=== PATIENT | female | born 1955 | race Caucasian/White ===

== ENCOUNTER 2020-06-07 16:26 | Inpatient (IN) | payer BC, MEDICARE ==
[~2020-06-07] VITALS: Ht 165.1 cm; Wt 79.9 kg
--- NOTE | 2020-06-07 16:48 | NUR ---
PATIENT ASSISTED TO BSC AND URINE SAMPLE OBTAINED AND SENT TO LAB.
--- NOTE | 2020-06-07 18:00 | NUR ---
PATIENT VOMITING IN CT, GIVEN 4MG ZOFRAN IVP.
[2020-06-07 19:30] VITALS: BP 118/72
[2020-06-07 21:44] LABS: BILIRUBIN NEGATIVE (NEGATIVE); KETONE NEGATIVE (NEGATIVE); NITRITE POSITIVE (NEGATIVE); UROBILINOGEN NORMAL mg/dL (< 2)
[2020-06-07 21:45] LABS: WHITE CELLS - URINE 25-50 HPF (0-4)
[2020-06-07 21:46] LABS: BACTERIA MANY HPF (NONE SEEN); SQUAMOUS EPITHELIAL 0-5 HPF (0-4)
[2020-06-07 22:00] VITALS: BP 11/61
--- NOTE | 2020-06-07 22:00 | NUR ---
PT IV ROCEPHIN FINISHED
--- NOTE | 2020-06-07 23:30 | NUR ---
PT IV ZITHROMAX FINISHED
[2020-06-07 23:54] LABS: SARS-CoV-2 ANTIGEN NEGATIVE- SARS-COV-2 (NEGATIVE)
[2020-06-08 01:00] VITALS: BP 100/56
--- NOTE | 2020-06-08 02:03 | NUR ---
PT WOUND CLEANED WITH BETADINE AND BETADINE SOAKED NON ADHERENT PLACED ON WOUND AND WRAPPED WITH KERLIX. PER ORDERS. PT TOLERATED WELL.
[2020-06-08 04:15] VITALS: BP 108/67
[2020-06-08 04:30] VITALS: BP 121/67
--- NOTE | 2020-06-08 04:30 | NUR ---
PT 89% ON 6L NC PT PLACED ON 15L NRB. 02 SATS IMPROVED TO 96%.
[2020-06-08 09:26] LABS: BASOPHILS 0.2 % (0-2); EOSINOPHILS 0 % (0-7); HEMATOCRIT 37.8 % (36.0-48.0); HEMOGLOBIN 12.7 g/dL (12-16); IMMATURE GRANULOCYTES 0.3 % (0-5); LYMPHOCYTE ABS# 1.01 10x3/uL (1.18-3.74); LYMPHOCYTES 11.8 % (15-50); MCH 31.1 pg (26.0-34.0); MCHC 33.6 g/dL (31.0-37.0); MCV 92.4 fL (80.0-100.0); MEAN PLATELET VOLUME 9.2 fL (7.4-10.4); MONOCYTES 8.6 % (2-11); NEUTROPHIL ABS# 6.78 10x3/uL (1.56-6.13); NEUTROPHILS 79.1 % (40-80); PLATELET COUNT 271 10x3/uL (130-400); RBC 4.09 10x6/uL (4.00-5.40); RDW 13.9 % (11.5-14.5); WBC 8.6 10x3/uL (4.8-10.8)
--- NOTE | 2020-06-08 09:27 | NUR ---
RECEIVED REPORT FROM THE ED. STATES THEY WILL GIVE THE MORNING MEDS AND POTASSIUM REPLACEMENT PER PROTOCOL THEN SEND HER.
[2020-06-08 09:54] VITALS: BMI 33.2
[2020-06-08 10:01] LABS: ALBUMIN 2.3 g/dL (3.4-5.0); ALKALINE PHOSPHATASE 90 U/L (30-120); ALT (SGPT) 34 U/L (10-68); BILIRUBIN - TOTAL 1.02 mg/dL (0.2-1.3); CALC OSMOLALITY 279 mosm/kg (275-300); CALCIUM 8.3 mg/dL (8.5-10.1); CARBON DIOXIDE 26.8 mmol/L (21.0-32.0); CHLORIDE - SERUM 99 mmol/L (98-107); CKMB 4.2 U/L (0.0-3.6); CREATINE KINASE 232 UL (21-215); CREATININE - SERUM 1.1 mg/dL (0.6-1.3); FERRITIN 668 ng/mL (3-244); GLUCOSE 128 mg/dL (74-106); LDH 436 U/L (81-234); MAGNESIUM - SERUM 2.5 mg/dL (1.8-2.4); PHOSPHOROUS 3.5 mg/dL (2.5-4.9); PROTEIN - SERUM 6.5 g/dL (6.4-8.2); SODIUM 136 mmol/L (136-145); UREA NITROGEN 30 mg/dL (7-18); eGFR NON AFRICAN AMERICAN 53 mL/min (90-120)
[2020-06-08 10:24] LABS: C-REACTIVE PROTEIN 18.5 mg/dL (0.0-0.9)
--- NOTE | 2020-06-08 10:36 | NUR ---
RECEIVED TO ROOM VIA WHEELCHAIR ON PORTABLE OXYGEN. SAT IS 63%. PLACED ON HIGH FLOW NASAL CANNULA WITH SAT TO 93% AT 10 L. IV SEEN TO LEFT AC PIV. WILL ADMIT.
[2020-06-08 10:42] LABS: POTASSIUM - SERUM 2.8 mmol/L (3.5-5.1); TROPONIN-I 0.694 ng/mL (0.000-0.060)
[2020-06-08 10:53] VITALS: BP 112/62
[2020-06-08 11:08] LABS: ERYTHROCYTE SEDIMENTATION RATE 82 mm/hr (0-30)
--- NOTE | 2020-06-08 11:10 | NUR ---
ZULEYMA SEEN TO LEFT ANKLE WITH NO DATE. PATIENT TO REPORT THAT IT WAS CHANGED THIS AM. WILL CHANGE AND DATE. PLACED ON HEART MONITOR, INSTRUC, IN IS AND PERFORMS WELL WITH 1000ML TIDAL VOLUME.
--- NOTE | 2020-06-08 11:49 | NUR ---
CALLED [facility] IN [place], SPOKE WITH SAL WHO IS GOING TO FAX THE LIST OF MEDICATIONS TO US.
--- NOTE | 2020-06-08 12:45 | NUR ---
CALLED TO ROOM. CLEANED UP FROM INCONT OF DIARREHA, BUTT PASTES APPLIED LIBERALLY. PAST CLEANING UP PATIENT AND DOING HER LEFT ANKLE SHE GOES AGAIN. CLEANED. LEFT ANKLE WOUND IS INNER ANKLE AREA, APPROX 5.5 CM X 1 CM IN A CATS EYES VIEW. VERY DARK/BLACK EDGES. WOUND BASE IS VERY RED AND IRRIATED LOOKING. NS APPIED TO 2 X 2, COVERED WITH DRY 4 X 4 AND WRAPPED WITH KERLIX. DATED. NO DRAINAGE SEEN. PATIENT STATES THAT THIS HAS BEEN THIS WAY FOR APPROX A YEAR WHEN SHE FELL IN THE BARN ON A C3DNAAR BOARD. TOLERATED WELL.
[2020-06-08] MEDS ORDERED: VOLTAREN75 MG PO (12:56)
[2020-06-08] MEDS ORDERED: NEURONTIN 300300 MG PO (12:56)
[2020-06-08] MEDS ORDERED: TRIAMTERENE-HC1 EAC3 PO (12:56)
[2020-06-08] MEDS ORDERED: CRESTOR5 MG PO (12:57)
[2020-06-08] MEDS ORDERED: SYNTHROID125 MCG PO (12:57)
[2020-06-08] MEDS ORDERED: EFFEXOR75 MG PO (12:58)
--- NOTE | 2020-06-08 12:58 | NUR ---
MEDICATION LIST FROM [facility] FAXED TO US. PATIENT HAS NO IDEA WHEN SHE TOOK HER MEDICATIONS LAST.
--- NOTE | 2020-06-08 13:12 | NUR ---
CLEANED AGAIN FOR INCONT. OF STOOL.
[2020-06-08 16:01] VITALS: BP 152/86
--- NOTE | 2020-06-08 17:41 | NUR ---
POTASSIUM RESULTS OF 3.4, WILL COVER PER PROTOCOL.
--- NOTE | 2020-06-08 17:53 | NUR ---
PATIENT TOOK 2 BITES AT LUNCH AND 6 BITES FOR SUPPER. PATIENT APPEARS MUCH MORE ALERT THIS EVENING. CALL LIGHT IN USE. SERUM POTASSIUM RE-OREDER PER PROTOCOL.
--- NOTE | 2020-06-08 18:31 | NUR ---
REMDESIVIR INFUSING WITHOUT PROBLEMS AT THIS TIME. PATIENT TO DO IS WITH TIDAL VOLUME OF 1000. DENIES ANY FURTHER NEEDS.
--- NOTE | 2020-06-08 19:30 | NUR ---
RECEIVED REPORT, WILL ASSUME CARE OF PT, DENIES ANY NEEDS AT THIS TIME, BED IS LOW, SRX2, CALL LIGHT IN REACH, WILL CONTINUE PLAN OF CARE
[2020-06-08 20:30] VITALS: BP 110/62
[2020-06-09 00:30] VITALS: BP 117/62
--- NOTE | 2020-06-09 02:02 | NUR ---
COMPLAINS OF IV HURTING, REMOVED CATHER INTACT, ARMAND BRODY RESITED 20G.TO JAZMÍN
--- NOTE | 2020-06-09 04:06 | NUR ---
I have reviewed this patient and I concur with the Shift Assessment completed by the Licensed Practical Nurse today this shift.
[2020-06-09 04:30] VITALS: BP 108/62
[2020-06-09 06:44] LABS: BASOPHILS 0.1 % (0-2); EOSINOPHILS 0.1 % (0-7); HEMATOCRIT 36.6 % (36.0-48.0); IMMATURE GRANULOCYTES 0.5 % (0-5); LYMPHOCYTE ABS# 1.61 10x3/uL (1.18-3.74); LYMPHOCYTES 19.1 % (15-50); MCH 30.9 pg (26.0-34.0); MCHC 32.8 g/dL (31.0-37.0); MCV 94.3 fL (80.0-100.0); MEAN PLATELET VOLUME 9.7 fL (7.4-10.4); MONOCYTES 8.3 % (2-11); NEUTROPHIL ABS# 6.05 10x3/uL (1.56-6.13); NEUTROPHILS 71.9 % (40-80); PLATELET COUNT 311 10x3/uL (130-400); RBC 3.88 10x6/uL (4.00-5.40); RDW 14.3 % (11.5-14.5); WBC 8.4 10x3/uL (4.8-10.8)
[2020-06-09 07:16] LABS: ALBUMIN 2.2 g/dL (3.4-5.0); ANION GAP 13.9 mmol/L (8-16); BILIRUBIN - DIRECT 0.2 mg/dL (0.00-0.30); BILIRUBIN - INDIRECT 0.44 mg/dL (0.00-1.00); BILIRUBIN - TOTAL 0.64 mg/dL (0.2-1.3); CALCIUM 8.4 mg/dL (8.5-10.1); CARBON DIOXIDE 26.2 mmol/L (21.0-32.0); CREATININE - SERUM 1.1 mg/dL (0.6-1.3); MAGNESIUM - SERUM 2.6 mg/dL (1.8-2.4); PHOSPHOROUS 3.4 mg/dL (2.5-4.9); POTASSIUM - SERUM 3.1 mmol/L (3.5-5.1)
[2020-06-09 08:00] VITALS: BP 108/59
--- NOTE | 2020-06-09 09:57 | NUR ---
CCP INFUSION STARTED. VITALS MONITORED.
[2020-06-09 11:38] VITALS: BP 112/46
[2020-06-09 16:00] VITALS: BP 124/61
--- NOTE | 2020-06-09 19:56 | NUR ---
RECEIVED REPORT, WILL ASSUME CARE OF PT, ASSIST PT TO RESTROOM AND BACK TO BED, BED IS LOW, SRX2, CALL LIGHT IN REACH, WILL CONTINUE PLAN OF CARE
[2020-06-09 20:29] VITALS: BP 114/55
[2020-06-09 22:12] LABS: BILIRUBIN NEGATIVE (NEGATIVE); KETONE NEGATIVE (NEGATIVE); NITRITE NEGATIVE (NEGATIVE); UROBILINOGEN NORMAL mg/dL (< 2)
[2020-06-10 01:10] VITALS: BP 111/63
--- NOTE | 2020-06-10 05:35 | NUR ---
I have reviewed this patient and I concur with the Shift Assessment completed by the Licensed Practical Nurse today this shift.
[2020-06-10 07:54] VITALS: BP 115/63
[2020-06-10 08:42] LABS: BASOPHILS 0.1 % (0-2); EOSINOPHILS 0.4 % (0-7); HEMATOCRIT 38.4 % (36.0-48.0); HEMOGLOBIN 12.6 g/dL (12-16); IMMATURE GRANULOCYTES 0.4 % (0-5); LYMPHOCYTE ABS# 1.51 10x3/uL (1.18-3.74); LYMPHOCYTES 18.7 % (15-50); MCH 31.2 pg (26.0-34.0); MCHC 32.8 g/dL (31.0-37.0); MEAN PLATELET VOLUME 9.4 fL (7.4-10.4); MONOCYTES 8.7 % (2-11); NEUTROPHILS 71.7 % (40-80); PLATELET COUNT 332 10x3/uL (130-400); RBC 4.04 10x6/uL (4.00-5.40); RDW 14.6 % (11.5-14.5); WBC 8.1 10x3/uL (4.8-10.8)
[2020-06-10 09:04] LABS: ALBUMIN 2.6 g/dL (3.4-5.0); ANION GAP 12.3 mmol/L (8-16); BILIRUBIN - DIRECT 0.22 mg/dL (0.00-0.30); BILIRUBIN - INDIRECT 0.64 mg/dL (0.00-1.00); BILIRUBIN - TOTAL 0.86 mg/dL (0.2-1.3); CALCIUM 8.6 mg/dL (8.5-10.1); MAGNESIUM - SERUM 2.5 mg/dL (1.8-2.4); PHOSPHOROUS 2.9 mg/dL (2.5-4.9); POTASSIUM - SERUM 3.3 mmol/L (3.5-5.1); PROTEIN - SERUM 6.5 g/dL (6.4-8.2)
[2020-06-10 11:11] VITALS: BP 109/64
--- NOTE | 2020-06-10 12:00 | NUR ---
IV RESTARTED TO LEFT AC BY ROBIN WEBBERN X 3 STICKS AND FLUSHED WITH NS.
--- NOTE | 2020-06-10 13:02 | NUR ---
1 UNIT COVID PLASMA STARTED. VS WNL. LINE IS PATENT. WILL MONITOR.
--- NOTE | 2020-06-10 13:03 | NUR ---
VERBAL CONSENT GIVEN FOR SURGEN PLCE GRAFT TO LEFT ANKLE.
[2020-06-10 15:49] VITALS: BP 113/62
[2020-06-10 20:18] VITALS: BP 114/60
[2020-06-11 00:40] VITALS: BP 119/58
--- NOTE | 2020-06-11 02:00 | NUR ---
I have reviewed this patient and I concur with the Shift Assessment completed by the Licensed Practical Nurse today this shift.
[2020-06-11 05:09] VITALS: BP 104/68
[2020-06-11 06:51] LABS: BASOPHILS 0 % (0-2); EOSINOPHILS 0.6 % (0-7); HEMATOCRIT 37.2 % (36.0-48.0); HEMOGLOBIN 12.1 g/dL (12-16); IMMATURE GRANULOCYTES 0.3 % (0-5); LYMPHOCYTE ABS# 1.26 10x3/uL (1.18-3.74); LYMPHOCYTES 18.9 % (15-50); MCHC 32.5 g/dL (31.0-37.0); MCV 95.4 fL (80.0-100.0); MEAN PLATELET VOLUME 9.8 fL (7.4-10.4); NEUTROPHIL ABS# 4.73 10x3/uL (1.56-6.13); NEUTROPHILS 71.2 % (40-80); PLATELET COUNT 309 10x3/uL (130-400); RDW 14.8 % (11.5-14.5); WBC 6.7 10x3/uL (4.8-10.8)
[2020-06-11 07:29] LABS: ALBUMIN 2.4 g/dL (3.4-5.0); ANION GAP 13.1 mmol/L (8-16); BILIRUBIN - DIRECT 0.25 mg/dL (0.00-0.30); BILIRUBIN - INDIRECT 0.48 mg/dL (0.00-1.00); BILIRUBIN - TOTAL 0.73 mg/dL (0.2-1.3); CALCIUM 7.9 mg/dL (8.5-10.1); CREATININE - SERUM 0.9 mg/dL (0.6-1.3); MAGNESIUM - SERUM 2.4 mg/dL (1.8-2.4); PHOSPHOROUS 3.3 mg/dL (2.5-4.9); POTASSIUM - SERUM 4.1 mmol/L (3.5-5.1); PROTEIN - SERUM 5.5 g/dL (6.4-8.2)
[2020-06-11 08:44] VITALS: BP 116/61
--- NOTE | 2020-06-11 11:21 | NUR ---
Nutrition Follow-up: Pt in droplet isolation; covid-19+. Poor PO intake reported over the weekend. Diarrhea. Noted plans for debridement of L leg chronic wound & placement of Restratta graft tomorrow. Diet: Regular Wt: 176# (06/09) Labs noted: Ca 7.9, Alb 2.4 Meds noted: Imodium, Florajen, Protonix, Decadron, zinc sulfate, vit B1, vit C, vit D, NS @ 50, electrolyte protocol -Encourage PO intake and honor food preferences. -+Ensure with meals. -Monitor wt. -RD will follow up within 2-3 days.
--- NOTE | 2020-06-11 12:30 | NUR ---
Rehab Note- Acute Inpatient REhab prescreen order received. The patient continues with an acute work up at this time with Surgeon noting skin graft planned for Wed, currently on 7L/High Flow O2. She has BC/BS insurance and will require a PreAuth prior to an acute inpatient rehab stay. She has a pending OT Eval. Will follow and begin PreAuth when acute work up completed. Thank you for this referral! Marita Calhoun RN Clinical Liaison, [facility] Rehab
[2020-06-11 13:02] VITALS: BP 132/57
[2020-06-11 16:08] VITALS: BP 124/67
--- NOTE | 2020-06-11 19:52 | NUR ---
SPOKE TO DR KAREN JACKSON AND IN AM
[2020-06-11 21:50] VITALS: BP 123/59
[2020-06-12 01:48] VITALS: BP 116/61
[2020-06-12 04:28] VITALS: BP 137/67
[2020-06-12 07:00] LABS: BASOPHILS 0 % (0-2); EOSINOPHILS 0.2 % (0-7); HEMOGLOBIN 12.1 g/dL (12-16); IMMATURE GRANULOCYTES 0.3 % (0-5); LYMPHOCYTES 17.5 % (15-50); MCH 30.9 pg (26.0-34.0); MCHC 32.7 g/dL (31.0-37.0); MCV 94.6 fL (80.0-100.0); MEAN PLATELET VOLUME 9.4 fL (7.4-10.4); MONOCYTES 9.4 % (2-11); NEUTROPHIL ABS# 4.57 10x3/uL (1.56-6.13); NEUTROPHILS 72.6 % (40-80); PLATELET COUNT 316 10x3/uL (130-400); RBC 3.91 10x6/uL (4.00-5.40); RDW 14.5 % (11.5-14.5); WBC 6.3 10x3/uL (4.8-10.8)
[2020-06-12 07:12] LABS: ALBUMIN 2.4 g/dL (3.4-5.0); ANION GAP 11.5 mmol/L (8-16); BILIRUBIN - DIRECT 0.2 mg/dL (0.00-0.30); BILIRUBIN - INDIRECT 0.42 mg/dL (0.00-1.00); BILIRUBIN - TOTAL 0.62 mg/dL (0.2-1.3); CARBON DIOXIDE 26.1 mmol/L (21.0-32.0); CREATININE - SERUM 0.9 mg/dL (0.6-1.3); MAGNESIUM - SERUM 2.2 mg/dL (1.8-2.4); PHOSPHOROUS 3.5 mg/dL (2.5-4.9); POTASSIUM - SERUM 3.6 mmol/L (3.5-5.1); PROTEIN - SERUM 5.9 g/dL (6.4-8.2)
--- NOTE | 2020-06-12 08:35 | NUR ---
MICHAEL [id number] LOT [id number] EXP 09/26/20
[2020-06-12 12:15] VITALS: BP 135/66
[2020-06-12 16:45] VITALS: Ht 165.1 cm; Wt 79.9 kg
--- NOTE | 2020-06-12 16:50 | NUR ---
OT NOTE: PT COMPLETED BUE AROM AX WITH FUNCTIONAL TASKS. PT COMPLETED ADL MOB WITH SBA-CGA. PT DID WELL. PT IS ANXIOUS TO GO HOME. [phone] PERRY GIBBS COTA
[2020-06-12 21:02] VITALS: BP 136/66
[2020-06-13 01:31] VITALS: BP 118/63
--- NOTE | 2020-06-13 05:33 | NUR ---
I have reviewed this patient and I concur with the Shift Assessment completed by the Licensed Practical Nurse today this shift.
[2020-06-13 05:45] VITALS: BP 123/58
[2020-06-13 05:56] LABS: BASOPHILS 0.2 % (0-2); EOSINOPHILS 0.2 % (0-7); HEMATOCRIT 41.2 % (36.0-48.0); HEMOGLOBIN 13.4 g/dL (12-16); IMMATURE GRANULOCYTES 0.5 % (0-5); LYMPHOCYTE ABS# 1.36 10x3/uL (1.18-3.74); LYMPHOCYTES 21.4 % (15-50); MCH 30.7 pg (26.0-34.0); MCHC 32.5 g/dL (31.0-37.0); MCV 94.5 fL (80.0-100.0); MEAN PLATELET VOLUME 9.6 fL (7.4-10.4); MONOCYTES 8.8 % (2-11); NEUTROPHILS 68.9 % (40-80); RBC 4.36 10x6/uL (4.00-5.40); RDW 14.6 % (11.5-14.5); WBC 6.4 10x3/uL (4.8-10.8)
[2020-06-13 06:05] LABS: PLATELET COUNT 390 10x3/uL (130-400)
[2020-06-13 06:14] LABS: ANION GAP 11.7 mmol/L (8-16); CALCIUM 8.4 mg/dL (8.5-10.1); CARBON DIOXIDE 25.6 mmol/L (21.0-32.0); CREATININE - SERUM 1.1 mg/dL (0.6-1.3); MAGNESIUM - SERUM 2.3 mg/dL (1.8-2.4); PHOSPHOROUS 3.4 mg/dL (2.5-4.9); POTASSIUM - SERUM 3.3 mmol/L (3.5-5.1)
--- NOTE | 2020-06-13 07:40 | NUR ---
UP IN CHAIR IN ROOM. DR BEARD IN TO SEE PT. GAVE HER WOUND INSTRUCTIONS IN REGARDS TO SKIN GRAFT ON LLE. WRAPPED W/ JADIEL WRAP & SECURED WITH TAPE. DENIES PAIN. IS READY TO BE DISCHARGED. SON WITH INSPECTOR MECHANICAL. WAS FOUND WHEN SHE WAS BROUGHT TO HOSPITAL, SO SHE HAS A TO PLAN. NO NEEDS VOICED AT PRESENT.
[2020-06-13 08:23] VITALS: BP 116/65
[2020-06-13] MEDS ORDERED: FEXOFENADINE HC60 MG PO (08:58)
[2020-06-13] MEDS ORDERED: ZINC-220220 MG PO (08:59)
[2020-06-13] MEDS ORDERED: DULERA 200 MCG8.8 GM INH (08:59)
[2020-06-13] MEDS ORDERED: MUCINEX DM ER1 EAC1 PO (08:59)
[2020-06-13] MEDS ORDERED: VITAMIN D325 MC1 PO (09:00)
[2020-06-13] MEDS ORDERED: SINGULAIR10 MG PO (09:00)
[2020-06-13] MEDS ORDERED: VITAMIN B-1100 M1 PO (09:00)
[2020-06-13] MEDS ORDERED: MELATONIN 3 MG1 TAB PO (09:00)
[2020-06-13] MEDS ORDERED: VITAMIN C PO (09:01)
[2020-06-13] MEDS ORDERED: DECADRON4 MG PO (09:01)
--- NOTE | 2020-06-13 16:01 | NUR ---
OT NOTE: PT COMPLETED ADL MOB WITH SPV. PT COMPLETED SIT TO STANDS WITH SBA. PT COMPLETED HYGIENE TASKS AT SINK LEVEL WHILE STANDING WITH SPV-SBA. PT EDUCATED ON SAFE AT HOME TO DECREASE RISK OF FALL. 3-052 THANK YOU,YENY MUNOZ
--- NOTE | 2020-06-13 16:28 | MORECARE ---
CASE MANAGEMENT DISCHARGE SUMMARY PATIENT: COLEEN OCHOA UNIT: [id number] ADM DATE: 06/07/20 AGE: 64 : 53 SEX: F ROOM/BED: D.2121 AUTHOR: CASI BHATT PHYSICIAN: REFERRING PHYSICIAN: NUPUR STUBBS MD DATE OF SERVICE: 06/13/20 Discharge Plan Patient Name: COLEEN OCHOA Facility: [facility]:[place] : 1955 Planned Disposition: Home Anticipated Discharge Date: Discharge Date: 06/13/2020 Expected LOS: Initial Reviewer: [email or web address] Initial Review Date: 06/07/2020 Generated: 06/13/20 5:27 pm DCPIA - Discharge Planning Initial Assessment Updated by [email or web address]: Kandice Taylor on 06/13/20 4:28 pm * Is the patient Alert and Oriented? Yes * How many steps to enter\exit or inside your home? * PCP PAULY * [facility] * Preadmission Environment Home Alone * ADLs Independent * Equipment Walker * Other Equipment BSC * List name and contact numbers for known caregivers / representatives who currently or will assist patient after discharge: RICARDO OCHOA - [facility] - [phone] * Verbal permission to speak to the caregivers and representatives has been obtained from the patient. Yes * Community resources currently utilized None * Additional services required to return to the preadmission environment? No * Can the patient safely return to the preadmission environment? Yes * Has this patient been hospitalized within the prior 30 days at any hospital? No Patient Name: COLEEN OCHOA Page [phone] at 1628 All edits/amendments must be made on the electronic document DICTATION DATE: 06/13/201626 EQUAL OPPORTUNITY DIRECTOR: JENNA 06/13/201626 RPT#: [id number] DC DATE:06/13/20 STATUS: DIS IN [facility] [address] [place] [address] END OF REPORT
--- NOTE | 2020-06-13 16:37 | MORECARE ---
CASE MANAGEMENT DISCHARGE SUMMARY PATIENT: COLEEN OCHOA UNIT: [id number] ADM DATE: 06/07/20 AGE: 64 : 53 SEX: F ROOM/BED: D.5812 AUTHOR: MILLERDOC PHYSICIAN: REFERRING PHYSICIAN: NUPUR STUBBS MD DATE OF SERVICE: 06/13/20 Discharge Plan Patient Name: COLEEN OCHOA Facility: [facility]:[place] : 1955 Planned Disposition: Home Anticipated Discharge Date: Discharge Date: 06/13/2020 Expected LOS: Initial Reviewer: [email or web address] Initial Review Date: 06/07/2020 Generated: 06/13/20 5:36 pm Comments DCP- Discharge Planning Updated by [email or web address]: Kandice Taylor on 06/13/20 3:[address] Patient Name: COLEEN OCHOA Admission Status: ER Accout number: [id number] Admission Date: 06-07-2020 : 1955 Admission Diagnosis:COVID-19 Attending: NUPUR STUBBS Current LOS: 6 Anticipated DC Date: Planned Disposition: Home Primary Insurance: [employer] OUT OF STATE Discharge Planning Comments: CM met with patient to complete initial dc planning assessment. CM educated patient on the CM role and verbal consent given by patient to complete assessment. Patient lives at home with prior to his recent demise. She will be home alone upon discharge. Patient is independent. At discharge patient plans to return home and feels this is a safe discharge. CM discussed availability of home health, rehab services, and medical equipment. Patient denies any need for HHS. Patient will have family to transport home. Patient denied known discharge needs at this time. CM will continue to follow and will assist as needed with dc plans/needs. Automobile Upholsterer Apprentice: Kandice Taylor DCPIA - Discharge Planning Initial Assessment Updated by [email or web address]: Kandice Taylor on 06/13/20 4:28 pm * Is the patient Alert and Oriented? Yes * How many steps to enter\exit or inside your home? * PCP PAULY * [facility] * Preadmission Environment Home Alone * ADLs Independent * Equipment Walker * Other Equipment BSC * List name and contact numbers for known caregivers / representatives who currently or will assist patient after discharge: RICARDO OCHOA - [place] - [phone] * Verbal permission to speak to the caregivers and representatives has been obtained from the patient. Yes * Community resources currently utilized None * Additional services required to return to the preadmission environment? No * Can the patient safely return to the preadmission environment? Yes * Has this patient been hospitalized within the prior 30 days at any hospital? No Last DP export: 06/13/20 3:28 p Patient Name: COLEEN OCHOA Page [id number] at 1637 All edits/amendments must be made on the electronic document DICTATION DATE: 06/13/201636 BLENDER: JENNA 06/13/201636 RPT#: [id number] DC DATE:06/13/20 STATUS: DIS IN [facility] [address] [place] [address] END OF REPORT
--- NOTE | 2020-06-14 11:18 | MORECARE ---
CASE MANAGEMENT DISCHARGE SUMMARY PATIENT: COLEEN OCHOA UNIT: [id number] ADM DATE: 06/07/20 AGE: 64 : 53 SEX: F ROOM/BED: D.9292 AUTHOR: MILLERDOC PHYSICIAN: REFERRING PHYSICIAN: NUPUR STUBBS MD DATE OF SERVICE: 06/14/20 Discharge Plan Patient Name: COLEEN OCHOA Facility: [facility]:[place] : 1955 Planned Disposition: Home Anticipated Discharge Date: Discharge Date: 06/13/2020 Expected LOS: Initial Reviewer: [email or web address] Initial Review Date: 06/07/2020 Generated: 06/14/20 12:17 pm Comments DCP- Discharge Planning Updated by [email or web address]: Kandice Taylor on 06/13/20 3:[address] Patient Name: COLEEN OCHOA Admission Status: ER Accout number: [id number] Admission Date: 06-07-2020 : 1955 Admission Diagnosis:COVID-19 Attending: NUPUR STUBBS Current LOS: 6 Anticipated DC Date: Planned Disposition: Home Primary Insurance: [employer] OUT OF STATE Discharge Planning Comments: CM met with patient to complete initial dc planning assessment. CM educated patient on the CM role and verbal consent given by patient to complete assessment. Patient lives at home with prior to his recent demise. She will be home alone upon discharge. Patient is independent. At discharge patient plans to return home and feels this is a safe discharge. CM discussed availability of home health, rehab services, and medical equipment. Patient denies any need for HHS. Patient will have family to transport home. Patient denied known discharge needs at this time. CM will continue to follow and will assist as needed with dc plans/needs. Family Readiness Support Assistant: Kandice Taylor DCPIA - Discharge Planning Initial Assessment Updated by [email or web address]: Kandice Taylor on 06/13/20 4:28 pm * Is the patient Alert and Oriented? Yes * How many steps to enter\exit or inside your home? * PCP PAULY * [facility] * Preadmission Environment Home Alone * ADLs Independent * Equipment Walker * Other Equipment BSC * List name and contact numbers for known caregivers / representatives who currently or will assist patient after discharge: RICARDO OCHOA - [place] - [phone] * Verbal permission to speak to the caregivers and representatives has been obtained from the patient. Yes * Community resources currently utilized None * Additional services required to return to the preadmission environment? No * Can the patient safely return to the preadmission environment? Yes * Has this patient been hospitalized within the prior 30 days at any hospital? No Last DP export: 06/13/20 3:37 p Patient Name: COLEEN OCHOA Page 78806 at 1118 All edits/amendments must be made on the electronic document DICTATION DATE: 06/14/201116 DIRECTOR OF RESOURCE DEVELOPMENT: JENNA 06/14/201116 RPT#: [id number] DC DATE:06/13/20 STATUS: DIS [facility] [address] [place] [address] END OF REPORT
== END 2020-06-13 12:28 | disposition home or self-care (01) | DRG 981 ==
LOC: D.ER 16:26 → D.M2 17:56 → D.EDHOLD 17:56 → D.M2 06-08 08:38
PROVIDERS: Family Medicine; Internal Medicine Pulmonary Disease; Surgery; ADMIT Emergency Medicine; ATTEND Emergency Medicine
PROC: XW033E5 Introduction of Remdesivir Anti-infective into Peripheral Vein, Percutaneous Approach, New Technology Group 5 (ICD-10-PCS; 2020-06-08)
PROC: XW13325 Transfusion of Convalescent Plasma (Nonautologous) into Peripheral Vein, Percutaneous Approach, New Technology Group 5 (ICD-10-PCS; 2020-06-09)
PROC: 0HBLXZZ Excision of Left Lower Leg Skin, External Approach (ICD-10-PCS; 2020-06-12)
PROC: 0HRLXK4 Replacement of Left Lower Leg Skin with Nonautologous Tissue Substitute, Partial Thickness, External Approach (ICD-10-PCS; principal; 2020-06-12 07:30)
DX: U07.1 COVID-19 (principal); J96.01 Acute respiratory failure with hypoxia; I26.99 Other pulmonary embolism without acute cor pulmonale; J12.82 Pneumonia due to coronavirus disease 2019; N39.0 Urinary tract infection, site not specified; G47.00 Insomnia, unspecified; F32.9 Major depressive disorder, single episode, unspecified; I10 Essential (primary) hypertension; E03.9 Hypothyroidism, unspecified; S81.802A Unspecified open wound, left lower leg, initial encounter; X58.XXXA Exposure to other specified factors, initial encounter

== ENCOUNTER → 2020-09-04 10:30 | Outpatient (CLI) | payer BC ==
[~2020-09-04 10:30] MED LIST: CRESTOR5 MG PO; DECADRON4 MG PO; DULERA 200 MCG8.8 GM INH; EFFEXOR75 MG PO; FEXOFENADINE HC60 MG PO; MELATONIN 3 MG1 TAB PO; MUCINEX DM ER1 EAC1 PO; NEURONTIN 300300 MG PO; SINGULAIR10 MG PO; SYNTHROID125 MCG PO; TRIAMTERENE-HC1 EAC3 PO; VITAMIN B-1100 M1 PO; VITAMIN C PO; VITAMIN D325 MC1 PO; VOLTAREN75 MG PO; ZINC-220220 MG PO
== END | disposition home or self-care (01) ==
LOC: D.RT 10:30
PROVIDERS: ATTEND Internal Medicine Pulmonary Disease
DX: R06.09 Other forms of dyspnea (principal)